=== PATIENT | male | born 1950 | race Caucasian/White ===

== ENCOUNTER 2018-12-06 21:45 | Emergency (ER) | payer OTHER ==
[2018-12-06 22:17] LABS: #Eosinphils 0.2 thou/uL (0.0-0.7); #Lymphocytes 1.6 thou/uL (1.20-3.40); #Monocytes 0.3 thou/uL (0.11-0.59); #Neutrophils 3.3 thou/uL (1.40-6.50); %Basophils 0.7 % (0.0-1.0); %Eosinophils 3.5 % (0.0-10.0); %Lymphocytes 29.6 % (21.0-51.0); %Monocytes 4.8 % (0.0-10.0); %Neutrophils 61.4 % (42.0-75.0); Hemoglobin 16.3 g/dL (14.0-18.0); Mean Corpuscular HGB CONC 34.3 g/dL (32.0-36.0); Mean Corpuscular Hemoglobin 32.6 pg (27.0-31.0); Mean Corpuscular Volume 94.9 fL (78.0-98.0); Platelet Count 214 thou/uL (130-400); RBC Distribution Width 12.2 % (11.5-14.5); Red Blood Cell (RBC) Count 4.99 mill/uL (4.70-6.10); White Blood Cell (WBC) Count 5.4 thou/uL (4.8-10.8)
[2018-12-06 22:23] LABS: INR-International Normal Ratio 0.9; Prothrombin Time 12.6 SEC (12.0-14.7)
[2018-12-06 22:24] LABS: PTT 31.9 SEC (22.9-36.1)
[2018-12-06 22:38] LABS: ALT (SGPT) 7 U/L (8-55); AST (SGOT) 9 U/L (5-34); Alkaline Phosphatase 88 U/L (40-150); Anion Gap 12 mmol/L (10-20); BUN (Urea Nitrogen) 13 mg/dL (8.4-25.7); Bilirubin, Total 0.2 mg/dL (0.2-1.2); Calc. Creatinine Clearance 0 mL/min (70-130); Calcium 9.7 mg/dL (7.8-10.44); Carbon Dioxide 29 mmol/L (23-31); Chloride 102 mmol/L (98-107); Estimated GFR-MDRD 77; Globulin 2.9 g/dL (2.4-3.5); Glucose 258 mg/dL (80-115); Potassium 3.8 mmol/L (3.5-5.1); Protein, Total 6.9 g/dL (5.8-8.1); Sodium 139 mmol/L (136-145)
[2018-12-06] MEDS ORDERED: Ondansetron ODT 8 MG TAB ONE (23:01)
[2018-12-06] MEDS ORDERED: Morphine 4 MG/ML VIAL ONE (23:23)
[2018-12-06] MEDS ORDERED: Ondansetron PF 4 MG/2 ML Vial ONE (23:28)
[2018-12-07] MEDS ORDERED: Morphine 4 MG/ML VIAL ONE (00:06)
[2018-12-07 01:26] LABS: #Eosinphils 0.1 thou/uL (0.0-0.7); #Lymphocytes 1.1 thou/uL (1.20-3.40); #Monocytes 0.8 thou/uL (0.11-0.59); #Neutrophils 16.3 thou/uL (1.40-6.50); %Basophils 0.1 % (0.0-1.0); %Eosinophils 0.6 % (0.0-10.0); %Lymphocytes 5.9 % (21.0-51.0); %Monocytes 4.1 % (0.0-10.0); %Neutrophils 89.3 % (42.0-75.0); Hemoglobin 16.3 g/dL (14.0-18.0); Mean Corpuscular HGB CONC 32.3 g/dL (32.0-36.0); Mean Corpuscular Hemoglobin 31.2 pg (27.0-31.0); Mean Corpuscular Volume 96.7 fL (78.0-98.0); Mean Platelet Volume 6.9 fL (7.4-10.4); PTT 30.1 SEC (22.9-36.1); Platelet Count 240 thou/uL (130-400); Prothrombin Time 13.4 SEC (12.0-14.7); RBC Distribution Width 12.4 % (11.5-14.5); Red Blood Cell (RBC) Count 5.22 mill/uL (4.70-6.10); White Blood Cell (WBC) Count 18.3 thou/uL (4.8-10.8)
[2018-12-07 01:40] LABS: ALT (SGPT) 12 U/L (8-55); AST (SGOT) 10 U/L (5-34); Alkaline Phosphatase 77 U/L (40-150); Anion Gap 13 mmol/L (10-20); BUN (Urea Nitrogen) 15 mg/dL (8.4-25.7); Bilirubin, Total 0.4 mg/dL (0.2-1.2); Calc. Creatinine Clearance 0 mL/min (70-130); Calcium 9.6 mg/dL (7.8-10.44); Carbon Dioxide 28 mmol/L (23-31); Chloride 103 mmol/L (98-107); Estimated GFR-MDRD 81; Globulin 2.9 g/dL (2.4-3.5); Glucose 139 mg/dL (80-115); Protein, Total 6.9 g/dL (5.8-8.1); Sodium 140 mmol/L (136-145)
== END 2018-12-07 02:02 | disposition home or self-care (01) ==
LOC: ERS 21:45
DX: T63.061A Toxic effect of venom of other North and South American snake, accidental (unintentional), initial encounter (principal); E11.9 Type 2 diabetes mellitus without complications; F17.210 Nicotine dependence, cigarettes, uncomplicated
CPT/HCPCS: 36415; 80053; 85025; 85610; 85730; 96374; 96375; 96376; J2270; J2405

== ENCOUNTER 2022-08-19 14:25 | Inpatient (IN) | payer MEDICARE, OTHER ==
[2022-08-19] MEDS ORDERED: Iopamidol-370 76% 500 ML 1 ML ONE (15:03)
[2022-08-19 15:34] LABS: Hemoglobin 15.3 g/dL (14.0-18.0); Mean Corpuscular HGB CONC 34.4 g/dL (32.0-36.0); Mean Corpuscular Hemoglobin 31.8 pg (27.0-31.0); Mean Corpuscular Volume 92.6 fl (78.0-98.0); Platelet Count 122 10x3/uL (130-400); RBC Distribution Width 12.3 % (11.5-14.5); Red Blood Cell (RBC) Count 4.82 mill/uL (4.70-6.10); White Blood Cell (WBC) Count 7.4 10x3/uL (4.8-10.8)
[2022-08-19 15:53] LABS: Band 42 % (5-11); Lymphocytes 7 % (21-51); MDiff Complete? YES; Metamyelocyte 15 % (0-0); Monocytes 3 % (0-10); Neutrophil 33 % (42-75); Platelet Morphology Comment Appears Decreased; RBC Morphology Normal; Reflex for Review?? YES; Vacuoles SLIGHT
[2022-08-19 15:54] LABS: ALT (SGPT) 9 U/L (8-55); AST (SGOT) 50 U/L (5-34); Albumin 3.4 g/dL (3.4-4.8); Alkaline Phosphatase 38 U/L (40-110); Anion Gap 14 mmol/L (10-20); BUN (Urea Nitrogen) 29 mg/dL (8.4-25.7); Bilirubin, Total 0.8 mg/dL (0.2-1.2); Calc. Creatinine Clearance 0 mL/min (70-130); Calcium 8.4 mg/dL (7.8-10.44); Carbon Dioxide 23 mmol/L (23-31); Chloride 94 mmol/L (98-107); Estimated GFR 40; Globulin 3.2 g/dL (2.4-3.5); Glucose 312 mg/dL (83-110); Lipase 8 U/L (8-78); Magnesium 1.4 mg/dL (1.6-2.6); Potassium 3.3 mmol/L (3.5-5.1); Protein, Total 6.6 g/dL (5.8-8.1); Sodium 128 mmol/L (136-145)
[2022-08-19] MEDS ORDERED: Cefepime 2 GM VIAL ONE (15:54)
[2022-08-19 16:11] LABS: Bacteria/HPF 4+ HPF (None Seen); Bilirubin Negative (Negative); Blood, Urine 3+ (Negative); Clarity Cloudy (Clear); Glucose, Urine (Dipstick) 500 mg/dL (Negative); Ketone, Urine Trace mg/dL (Negative); Leukocyte 500 Leu/uL (Negative); Nitrite Negative (Negative); Protein, Urine (Dipstick) 300 mg/dL (Neg-Trace); Specific Gravity, Urine 1.022 (1.002-1.036); Urobilinogen Normal mg/dL (Less than 2); WBC/HPF Greater than 50 HPF (0-3); pH, Urine 5.5 (5.0-9.0)
[2022-08-19 16:16] LABS: CKMB 3.8 ng/mL (0-6.6)
[2022-08-19] MEDS ORDERED: Vancomycin 1 GM/200 ML (FROZEN) BAG ONE (16:24)
[2022-08-19] MEDS ORDERED: Magnesium 2 GM/50 ML BAG (IN WATER) ONE (16:24)
[2022-08-19] MEDS ORDERED: Potassium Chloride 20 MEQ TAB ONE (16:25)
[2022-08-19] MEDS ORDERED: Aspirin Chewable 81 MG TAB ONE (16:46)
[2022-08-19 17:06] LABS: SARS-CoV-2 NAA Rapid Test DETECTED (NotDetected)
[2022-08-19] MEDS ORDERED: HumaLOG 300 UNITS/3 ML VIAL SC PRN (18:01)
[2022-08-19] MEDS ORDERED: Ondansetron PF 4 MG/2 ML Vial IVP PRN (18:01)
[2022-08-19] MEDS ORDERED: Dextrose 5% in Water 1,000 ML IV PRN (18:01)
[2022-08-19] MEDS ORDERED: Dextrose 50% Abboject 50 ML SYRINGE SLOW IVP PRN (18:01)
[2022-08-19] MEDS ORDERED: Electrolyte Replacement Protocol 1 EACH FS PRN (18:15)
[2022-08-19] MEDS ORDERED: Albuterol 200 PUFF (6.7GM INHALER) INH PRN (18:23)
[2022-08-19 18:50] LABS: Troponin I 0.102 ng/mL (< 0.028)
[2022-08-19] MEDS ORDERED: REMDESIVIR IVPB PRN (19:30)
[2022-08-19] MEDS ORDERED: REMDESIVIR 200 MG in Sodium Chloride 0.9% 250 ML 210 ML IV SCH (20:00)
[2022-08-19] MEDS ORDERED: Nicotine 21 MG PATCH TD PRN (20:00)
[2022-08-19] MEDS: Sodium Chloride 0.9% 1,000 ML IV SCH (21:14)
[2022-08-19] MEDS: Dexamethasone 4 mg/ml Vial SLOW IVP SCH (21:15)
[2022-08-19] MEDS: Acetaminophen 325 MG TAB PO PRN (21:16)
[2022-08-19] MEDS: Benzonatate 100 MG CAP PO SCH (21:16)
[2022-08-19 22:09] VITALS: BMI 23.7
[2022-08-19] MEDS ORDERED: Vancomycin 1 GM in Premix Bag 1 BAG IVPB SCH (22:45)
[2022-08-19] MEDS ORDERED: Magnesium 2 GM/50 ML(in water) 2 GM in Premix Bag 1 BAG IVPB SCH (23:00)
[2022-08-19 23:59] LABS: Troponin I 0.079 ng/mL (< 0.028)
[2022-08-20 00:33] LABS: Legionella Urinary Ag Negative (Negative); Strep pneumo Urine Ag POSITIVE (NEGATIVE)
[2022-08-20] MEDS: HumaLOG 300 UNITS/3 ML VIAL SC PRN ×2 (06:46→13:32)
[2022-08-20 08:07] LABS: Hemoglobin 14.3 g/dL (14.0-18.0); Mean Corpuscular HGB CONC 33.3 g/dL (32.0-36.0); Mean Corpuscular Hemoglobin 31.8 pg (27.0-31.0); Mean Corpuscular Volume 95.3 fl (78.0-98.0); Mean Platelet Volume 8.4 fL (7.4-10.4); Platelet Count 120 10x3/uL (130-400); RBC Distribution Width 12.3 % (11.5-14.5); Red Blood Cell (RBC) Count 4.51 mill/uL (4.70-6.10); White Blood Cell (WBC) Count 8.9 10x3/uL (4.8-10.8)
[2022-08-20 08:24] LABS: Anion Gap 15 mmol/L (10-20); BUN (Urea Nitrogen) 29 mg/dL (8.4-25.7); Calc. Creatinine Clearance 74 mL/min (70-130); Calcium 7.7 mg/dL (7.8-10.44); Carbon Dioxide 17 mmol/L (23-31); Cardiac Risk 4.5 (Less than 4.5); Chloride 101 mmol/L (98-107); Cholesterol 68 mg/dl (< 200 Desired); Estimated GFR 66; Glucose 253 mg/dL (83-110); HDL Cholesterol 15 mg/dL (>60 Neg Risk); LDL Cholesterol, Calculated 27 mg/dL; Magnesium 2.1 mg/dL (1.6-2.6); Potassium 3.9 mmol/L (3.5-5.1); Sodium 129 mmol/L (136-145); Triglycerides 130 mg/dL (Less than 150)
[2022-08-20] MEDS ORDERED: Enoxaparin Sodium 30 MG/0.3 ML SYRINGE SC SCH (09:00)
[2022-08-20] MEDS ORDERED: FLU VACC QS2022-23(65YR UP)/PF 240 MCG/0.7 ML SYRINGE IM ONE (09:00)
[2022-08-20] MEDS: Sodium Chloride 0.9% 1,000 ML IV SCH ×3 (09:30→18:22)
[2022-08-20] MEDS: Benzonatate 100 MG CAP PO SCH ×3 (09:33→21:00)
[2022-08-20] MEDS: Aspirin 81 mg Enteric Coated Tablet PO SCH (09:33)
[2022-08-20] MEDS: Acetaminophen 325 MG TAB PO PRN (09:33)
[2022-08-20 09:59] LABS: Band 80 % (5-11); Lymphocytes 2 % (21-51); MDiff Complete? YES; Metamyelocyte 2 % (0-0); Monocytes 1 % (0-10); Neutrophil 15 % (42-75); Platelet Morphology Comment Appears Decreased; RBC Morphology Normal
[2022-08-20] MEDS: Cefepime 2 GM in Sodium Chloride 0.9% 100 ML IVPB SCH ×2 (13:30→23:07)
[2022-08-20] MEDS: glipiZIDE 10 MG TAB PO SCH (18:10)
[2022-08-20] MEDS: VANCOMYCIN 1.75 GM/500 ML BAG 1.75 GM in Premix Bag 1 BAG IVPB SCH (19:06)
[2022-08-20] MEDS: Dexamethasone 4 mg/ml Vial SLOW IVP SCH (20:59)
[2022-08-20] MEDS: REMDESIVIR 100 MG in Sodium Chloride 0.9% 250 ML 230 ML IV SCH (21:00)
[2022-08-21] MEDS: Acetaminophen 325 MG TAB PO PRN (05:14)
[2022-08-21] MEDS: Sodium Chloride 0.9% 1,000 ML IV SCH ×2 (05:14→17:59)
[2022-08-21 06:02] LABS: Hemoglobin 14.1 g/dL (14.0-18.0); Mean Corpuscular HGB CONC 32.6 g/dL (32.0-36.0); Mean Corpuscular Hemoglobin 31.4 pg (27.0-31.0); Mean Corpuscular Volume 96.5 fl (78.0-98.0); Mean Platelet Volume 9.6 fL (7.4-10.4); Platelet Count 129 10x3/uL (130-400); RBC Distribution Width 12.6 % (11.5-14.5); Red Blood Cell (RBC) Count 4.49 mill/uL (4.70-6.10); White Blood Cell (WBC) Count 9.9 10x3/uL (4.8-10.8)
[2022-08-21 06:27] LABS: MDiff Complete? YES
[2022-08-21 06:28] LABS: Band 32 % (5-11); Lymphocytes 6 % (21-51); Monocytes 5 % (0-10); Neutrophil 57 % (42-75)
[2022-08-21] MEDS: buPROPion HCl 100 MG TAB PO SCH (08:33)
[2022-08-21] MEDS: Pioglitazone HCl 15 MG TAB PO SCH (08:33)
[2022-08-21] MEDS: Enoxaparin Sodium 40 MG/0.4 ML SYRINGE SC SCH (08:33)
[2022-08-21] MEDS: Benzonatate 100 MG CAP PO SCH ×3 (08:34→21:28)
[2022-08-21] MEDS: Aspirin 81 mg Enteric Coated Tablet PO SCH (08:34)
[2022-08-21] MEDS: glipiZIDE 10 MG TAB PO SCH ×2 (08:34→15:28)
[2022-08-21 09:57] LABS: Albumin 2.7 g/dL (3.4-4.8)
[2022-08-21 09:58] LABS: Chloride 99 mmol/L (98-107); Potassium 3.8 mmol/L (3.5-5.1); Sodium 128 mmol/L (136-145)
[2022-08-21 09:59] LABS: Glucose 246 mg/dL (83-110); Protein, Total 5.7 g/dL (5.8-8.1)
[2022-08-21 10:01] LABS: Anion Gap 12 mmol/L (10-20); Bilirubin, Total 0.7 mg/dL (0.2-1.2); Carbon Dioxide 21 mmol/L (23-31)
[2022-08-21 10:02] LABS: Alkaline Phosphatase 46 U/L (40-110)
[2022-08-21 10:03] LABS: BUN (Urea Nitrogen) 35 mg/dL (8.4-25.7); Calc. Creatinine Clearance 85 mL/min (70-130); Estimated GFR 79
[2022-08-21 10:04] LABS: AST (SGOT) 35 U/L (5-34)
[2022-08-21 10:05] LABS: ALT (SGPT) 15 U/L (8-55); Magnesium 2.3 mg/dL (1.6-2.6)
[2022-08-21] MEDS: Cefepime 2 GM in Sodium Chloride 0.9% 100 ML IVPB SCH (11:29)
[2022-08-21] MEDS: HumaLOG 300 UNITS/3 ML VIAL SC PRN ×2 (11:31→17:59)
[2022-08-21 18:13] LABS: Vancomycin, Trough 9.7 ug/mL
[2022-08-21] MEDS: Dexamethasone 4 mg/ml Vial SLOW IVP SCH (21:28)
[2022-08-21] MEDS: VANCOMYCIN 1.75 GM/500 ML BAG 1.75 GM in Premix Bag 1 BAG IVPB SCH (22:40)
[2022-08-21] MEDS: Insulin Glargine 30 UNITS/0.3 ML VIAL SC SCH (22:41)
[2022-08-21] MEDS: REMDESIVIR 100 MG in Sodium Chloride 0.9% 250 ML 230 ML IV SCH (22:41)
[2022-08-22] MEDS: Cefepime 2 GM in Sodium Chloride 0.9% 100 ML IVPB SCH ×2 (01:56→12:30)
[2022-08-22 07:56] LABS: Anion Gap 13 mmol/L (10-20); BUN (Urea Nitrogen) 35 mg/dL (8.4-25.7); Calc. Creatinine Clearance 103 mL/min (70-130); Calcium 8.2 mg/dL (7.8-10.44); Carbon Dioxide 19 mmol/L (23-31); Chloride 103 mmol/L (98-107); Estimated GFR 92; Glucose 254 mg/dL (83-110); Potassium 3.4 mmol/L (3.5-5.1); Sodium 132 mmol/L (136-145)
[2022-08-22] MEDS ORDERED: Amlodipine 10 MG TAB PO SCH (08:00)
[2022-08-22] MEDS ORDERED: cloNIDine 0.2 MG TAB PO SCH (08:00)
[2022-08-22] MEDS: glipiZIDE 10 MG TAB PO SCH ×2 (08:53→16:40)
[2022-08-22] MEDS: Enoxaparin Sodium 40 MG/0.4 ML SYRINGE SC SCH (08:53)
[2022-08-22] MEDS: Sodium Chloride 0.9% 1,000 ML IV SCH (08:53)
[2022-08-22] MEDS: buPROPion HCl 100 MG TAB PO SCH (08:53)
[2022-08-22] MEDS: Pioglitazone HCl 15 MG TAB PO SCH (08:53)
[2022-08-22] MEDS: Benzonatate 100 MG CAP PO SCH ×3 (08:54→21:56)
[2022-08-22] MEDS: Aspirin 81 mg Enteric Coated Tablet PO SCH (08:54)
[2022-08-22 10:07] LABS: Band 18 % (5-11); Lymphocytes 3 % (21-51); MDiff Complete? YES; Mean Corpuscular HGB CONC 33.8 g/dL (32.0-36.0); Mean Corpuscular Volume 94.6 fl (78.0-98.0); Mean Platelet Volume 8.2 fL (7.4-10.4); Monocytes 3 % (0-10); Neutrophil 75 % (42-75); Platelet Count 176 10x3/uL (130-400); Platelet Morphology Comment Appears Adequate; RBC Distribution Width 12.5 % (11.5-14.5); RBC Morphology Normal; Reactive Lymphocytes 1 % (0-10); Red Blood Cell (RBC) Count 4.36 mill/uL (4.70-6.10); White Blood Cell (WBC) Count 14.9 10x3/uL (4.8-10.8)
[2022-08-22] MEDS ORDERED: Potassium Chloride 20 MEQ TAB PO SCH (10:15)
[2022-08-22] MEDS ORDERED: Vancomycin 1.5 GRAM/300 ML BAG 1.5 GM in Premix Bag 1 BAG IVPB SCH (11:00)
[2022-08-22] MEDS: HumaLOG 300 UNITS/3 ML VIAL SC PRN ×2 (12:30→16:40)
[2022-08-22] MEDS: Dexamethasone 4 mg/ml Vial SLOW IVP SCH (20:55)
[2022-08-22] MEDS: REMDESIVIR 100 MG in Sodium Chloride 0.9% 250 ML 230 ML IV SCH (20:55)
[2022-08-22] MEDS: Insulin Glargine 30 UNITS/0.3 ML VIAL SC SCH (22:56)
[2022-08-22] MEDS ORDERED: VANCOMYCIN 1.75 GM/500 ML BAG 1.75 GM in Premix Bag 1 BAG IVPB SCH (23:00)
[2022-08-23] MEDS: HumaLOG 300 UNITS/3 ML VIAL SC PRN ×3 (06:44→17:18)
[2022-08-23] MEDS ORDERED: Amlodipine 5 MG TAB PO SCH ×3 (09:00→21:00)
[2022-08-23] MEDS: buPROPion HCl 100 MG TAB PO SCH (09:17)
[2022-08-23] MEDS: Benzonatate 100 MG CAP PO SCH ×3 (09:18→20:32)
[2022-08-23] MEDS: Aspirin 81 mg Enteric Coated Tablet PO SCH (09:18)
[2022-08-23] MEDS: glipiZIDE 10 MG TAB PO SCH ×2 (09:18→16:32)
[2022-08-23] MEDS: Pioglitazone HCl 15 MG TAB PO SCH (09:18)
[2022-08-23] MEDS: Enoxaparin Sodium 40 MG/0.4 ML SYRINGE SC SCH (09:18)
[2022-08-23 14:01] LABS: ALT (SGPT) 18 U/L (8-55); AST (SGOT) 25 U/L (5-34); Albumin 2.6 g/dL (3.4-4.8); Alkaline Phosphatase 62 U/L (40-110); Bilirubin, Direct 0.3 mg/dL (0.1-0.3); Bilirubin, Total 0.7 mg/dL (0.2-1.2); Protein, Total 6.1 g/dL (5.8-8.1)
[2022-08-23] MEDS ORDERED: cloNIDine 0.1 MG TAB PO PRN (16:44)
[2022-08-23] MEDS ORDERED: cloNIDine 0.2 MG TAB PO SCH (16:45)
[2022-08-23] MEDS: Dexamethasone 4 mg/ml Vial SLOW IVP SCH (20:31)
[2022-08-23] MEDS: REMDESIVIR 100 MG in Sodium Chloride 0.9% 250 ML 230 ML IV SCH (20:31)
[2022-08-23] MEDS: metFORMIN 500 MG TAB PO SCH (20:32)
[2022-08-23] MEDS: Insulin Glargine 30 UNITS/0.3 ML VIAL SC SCH (20:32)
[2022-08-24] MEDS: HumaLOG 300 UNITS/3 ML VIAL SC PRN ×2 (05:15→12:48)
[2022-08-24] MEDS: Oxybutynin 5 MG TAB PO SCH ×2 (09:13→10:46)
[2022-08-24] MEDS: buPROPion HCl 100 MG TAB PO SCH ×2 (09:13→10:47)
[2022-08-24] MEDS: Amlodipine 5 MG TAB PO SCH ×2 (09:13→10:46)
[2022-08-24] MEDS: Benzonatate 100 MG CAP PO SCH ×2 (09:13→10:46)
[2022-08-24] MEDS: glipiZIDE 10 MG TAB PO SCH ×2 (09:13→10:47)
[2022-08-24] MEDS: Aspirin 81 mg Enteric Coated Tablet PO SCH ×2 (09:13→10:46)
[2022-08-24] MEDS: metFORMIN 500 MG TAB PO SCH ×2 (09:13→10:46)
[2022-08-24] MEDS: Enoxaparin Sodium 40 MG/0.4 ML SYRINGE SC SCH ×2 (09:13→10:47)
[2022-08-24] MEDS: Pioglitazone HCl 15 MG TAB PO SCH ×2 (09:14→10:47)
[2022-08-24 16:36] VITALS: BP 157/67; TEMP 97.5
== END 2022-08-24 16:50 | disposition home or self-care (01) | DRG 177 ==
LOC: ERS 14:25 → 2NO 17:10 → T4-A 08-21 21:57
PROVIDERS: ADMIT Family Medicine; ATTEND Family Medicine
PROC: 3E0333Z Introduction of Anti-inflammatory into Peripheral Vein, Percutaneous Approach (ICD-10-PCS; principal; 2022-08-19)
PROC: XW033E5 Introduction of Remdesivir Anti-infective into Peripheral Vein, Percutaneous Approach, New Technology Group 5 (ICD-10-PCS; 2022-08-19)
PROC: 8E0ZXY6 Isolation (ICD-10-PCS; 2022-08-19)
DX: U07.1 COVID-19 (principal); J12.82 Pneumonia due to coronavirus disease 2019; J15.4 Pneumonia due to other streptococci; J96.01 Acute respiratory failure with hypoxia; N12 Tubulo-interstitial nephritis, not specified as acute or chronic; N17.9 Acute kidney failure, unspecified; E87.1 Hypo-osmolality and hyponatremia; I24.8 Other forms of acute ischemic heart disease; I25.10 Atherosclerotic heart disease of native coronary artery without angina pectoris; E11.9 Type 2 diabetes mellitus without complications; F17.210 Nicotine dependence, cigarettes, uncomplicated; I10 Essential (primary) hypertension; D69.6 Thrombocytopenia, unspecified; E83.42 Hypomagnesemia; E87.6 Hypokalemia; H66.90 Otitis media, unspecified, unspecified ear; H91.90 Unspecified hearing loss, unspecified ear; Z95.5 Presence of coronary angioplasty implant and graft
CPT/HCPCS: 36415; 36416; 51701; 71045; 71260; 74177; 80048; 80053; 80061; 80076; 80202; 81003; 81015; 82553; 83605; 83690; 83735; 84443; 84484; 85025; 85060; 87040; 87081; 87086; 87149; 87186; 87449; 87804; 87899; 93005; 93306; 96365; 96367; J0248; J0692; J1100; J1650; J1815; J3370; J3370-JW; J3475; J3490; J7050; J7620; Q9967; U0002

== ENCOUNTER 2025-08-03 20:49 | Inpatient (IN) | payer MEDICARE, OTHER ==
[2025-08-03 21:49] LABS: #Basophils 0.03 10x3/uL (0.0-0.2); #Eosinophils 0.03 10x3/uL (0.0-0.7); #Monocytes 0.43 10x3/uL (0.11-0.59); #Neutrophils 12.74 10x3/uL (1.40-6.50); %Basophils 0.2 % (0.0-1.0); %Eosinophils 0.2 % (0.0-10.0); %Lymphocytes 6.9 % (21.0-51.0); %Monocytes 3.0 % (0.0-10.0); %Neutrophils 89.3 % (42.0-75.0); Hematocrit 41.0 % (42.0-52.0); Hemoglobin 14.3 g/dL (14.0-18.0); Mean Corpuscular Hemoglobin 30.6 pg (27.0-31.0); Mean Corpuscular Volume 87.8 fL (78.0-98.0); Platelet Count 190 10x3/uL (130-400); Red Blood Cell (RBC) Count 4.67 mill/uL (4.70-6.10); White Blood Cell (WBC) Count 14.26 10x3/uL (4.8-10.8)
[2025-08-03 22:14] LABS: ALT (SGPT) 10 U/L (Less than 45); AST (SGOT) 17 U/L (11-34); Albumin 3.5 g/dL (3.1-4.5); Alkaline Phosphatase 75 U/L (40-110); Anion Gap 16 mmol/L (10-20); BUN (Urea Nitrogen) 29 mg/dL (8.4-25.7); Bilirubin, Total 0.4 mg/dL (0.3-1.2); Calc. Creatinine Clearance 0 mL/min (70-130); Calcium 9.3 mg/dL (7.8-10.44); Carbon Dioxide 25 mmol/L (23-31); Chloride 100 mmol/L (98-107); Globulin 3.0 g/dL (2.4-3.5); Glucose 300 mg/dL (83-110); Potassium 4.0 mmol/L (3.5-5.1); Sodium 137 mmol/L (136-145)
[2025-08-03] MEDS ORDERED: Acetaminophen 325 MG TAB PO PRN (23:30)
[2025-08-03] MEDS ORDERED: Glucagon 1 MG/ML KIT IM PRN (23:30)
[2025-08-03] MEDS ORDERED: Dextrose 50% Abboject 50 ML SYRINGE SLOW IVP PRN (23:30)
[2025-08-04] MEDS: Methocarbamol 500 MG TAB PO PRN (00:54)
[2025-08-04] MEDS: Ondansetron PF 4 MG/2 ML Vial IVP PRN (00:55)
[2025-08-04 03:05] VITALS: BMI 22.3
[2025-08-04 05:08] LABS: #Basophils 0.03 10x3/uL (0.0-0.2); #Eosinophils 0.07 10x3/uL (0.0-0.7); #Monocytes 0.55 10x3/uL (0.11-0.59); #Neutrophils 10.85 10x3/uL (1.40-6.50); %Basophils 0.2 % (0.0-1.0); %Eosinophils 0.6 % (0.0-10.0); %Lymphocytes 8.5 % (21.0-51.0); %Monocytes 4.4 % (0.0-10.0); %Neutrophils 85.9 % (42.0-75.0); Hematocrit 35.8 % (42.0-52.0); Hemoglobin 12.1 g/dL (14.0-18.0); Mean Corpuscular Hemoglobin 30.1 pg (27.0-31.0); Mean Corpuscular Volume 89.1 fL (78.0-98.0); Platelet Count 162 10x3/uL (130-400); Red Blood Cell (RBC) Count 4.02 mill/uL (4.70-6.10); White Blood Cell (WBC) Count 12.62 10x3/uL (4.8-10.8)
[2025-08-04 05:40] LABS: Anion Gap 12 mmol/L (10-20); BUN (Urea Nitrogen) 28 mg/dL (8.4-25.7); Calc. Creatinine Clearance 68 mL/min (70-130); Calcium 8.5 mg/dL (7.8-10.44); Carbon Dioxide 27 mmol/L (23-31); Chloride 102 mmol/L (98-107); Glucose 246 mg/dL (83-110); Potassium 3.9 mmol/L (3.5-5.1); Sodium 137 mmol/L (136-145)
[2025-08-04] MEDS: Senokot S 8.6-50 MG TAB PO SCH (07:47)
[2025-08-04] MEDS ORDERED: Senokot S 8.6-50 MG TAB PO SCH (09:00)
[2025-08-04] MEDS ORDERED: fentaNYL PF 100 MCG/2 ML SYRINGE ONE ×3 (13:30→16:47)
[2025-08-04] MEDS ORDERED: Lidocaine 1% PF 5 ML VIAL ONE (13:31)
[2025-08-04] MEDS ORDERED: Lidocaine 2% 6 ML (Jelly) SYR ONE (13:41)
[2025-08-04] MEDS ORDERED: Ondansetron PF 4 MG/2 ML Vial ONE (14:25)
[2025-08-04] MEDS ORDERED: PROPOFOL 200 MG/20 ML VIAL ONE (14:25)
[2025-08-04] MEDS ORDERED: Rocuronium Bromide 10 MG/ML (10ML VIAL) ONE (14:25)
[2025-08-04] MEDS ORDERED: SUGAMMADEX SODIUM 200 MG/2 ML VIAL ONE (16:05)
[2025-08-04] MEDS: Acetaminophen 500 MG TAB PO SCH (18:10)
[2025-08-04] MEDS: Famotidine/PF 20 mg/2ml Vial SLOW IVP SCH (18:10)
[2025-08-04] MEDS: Scopolamine 1 mg/72 hour Patch TOP SCH (18:10)
[2025-08-04] MEDS: Aspirin 81 mg Enteric Coated Tablet PO SCH (18:10)
[2025-08-04] MEDS: hydrALAZINE 20 MG/ML VIAL SLOW IVP PRN (21:45)
[2025-08-05 04:54] LABS: #Basophils Less than 0.03 10x3/uL (0.0-0.2); #Eosinophils Less than 0.03 10x3/uL (0.0-0.7); #Monocytes 0.48 10x3/uL (0.11-0.59); #Neutrophils 9.33 10x3/uL (1.40-6.50); %Basophils 0.1 % (0.0-1.0); %Eosinophils 0.1 % (0.0-10.0); %Lymphocytes 5.6 % (21.0-51.0); %Monocytes 4.6 % (0.0-10.0); %Neutrophils 89.3 % (42.0-75.0); Hematocrit 32.2 % (42.0-52.0); Hemoglobin 10.8 g/dL (14.0-18.0); Mean Corpuscular Hemoglobin 30.3 pg (27.0-31.0); Mean Corpuscular Volume 90.4 fL (78.0-98.0); Platelet Count 144 10x3/uL (130-400); Red Blood Cell (RBC) Count 3.56 mill/uL (4.70-6.10); White Blood Cell (WBC) Count 10.44 10x3/uL (4.8-10.8)
[2025-08-05 05:17] LABS: Anion Gap 12 mmol/L (10-20); BUN (Urea Nitrogen) 28 mg/dL (8.4-25.7); Calc. Creatinine Clearance 62 mL/min (70-130); Calcium 8.1 mg/dL (7.8-10.44); Carbon Dioxide 23 mmol/L (23-31); Chloride 104 mmol/L (98-107); Glucose 292 mg/dL (83-110); Potassium 4.3 mmol/L (3.5-5.1); Sodium 135 mmol/L (136-145)
[2025-08-05] MEDS: Aspirin 81 mg Enteric Coated Tablet PO SCH (08:18)
[2025-08-05] MEDS: Valsartan 80 MG TAB PO SCH (08:18)
[2025-08-05] MEDS: Enoxaparin 40 MG (0.4 mL) SYRINGE SC SCH (08:19)
[2025-08-05] MEDS ORDERED: Ibuprofen 600 MG TAB PO SCH (11:00)
[2025-08-05] MEDS ORDERED: Acetaminophen 325 MG TAB PO SCH (11:00)
[2025-08-05] MEDS: Acetaminophen 500 MG TAB PO SCH (12:44)
[2025-08-05] MEDS: cefTRIAXone\\ROCEPHIN 1 GM in Sodium Chloride 0.9% 100 ML IVPB SCH (14:55)
[2025-08-05] MEDS: Ibuprofen 200 MG TAB PO SCH (14:55)
[2025-08-05] MEDS: Gabapentin 300 MG CAP PO SCH (16:01)
[2025-08-05] MEDS: Azithromycin 500 MG in Sodium Chloride 0.9% 250 ML 250 ML IVPB SCH (16:04)
[2025-08-06 06:26] LABS: #Basophils 0.03 10x3/uL (0.0-0.2); #Eosinophils 0.43 10x3/uL (0.0-0.7); #Monocytes 0.48 10x3/uL (0.11-0.59); #Neutrophils 4.47 10x3/uL (1.40-6.50); %Basophils 0.4 % (0.0-1.0); %Eosinophils 6.2 % (0.0-10.0); %Lymphocytes 22.3 % (21.0-51.0); %Monocytes 6.9 % (0.0-10.0); %Neutrophils 63.9 % (42.0-75.0); Hematocrit 29.6 % (42.0-52.0); Hemoglobin 9.9 g/dL (14.0-18.0); Mean Corpuscular Hemoglobin 30.5 pg (27.0-31.0); Mean Corpuscular Volume 91.1 fL (78.0-98.0); Platelet Count 140 10x3/uL (130-400); Red Blood Cell (RBC) Count 3.25 mill/uL (4.70-6.10); White Blood Cell (WBC) Count 6.99 10x3/uL (4.8-10.8)
[2025-08-06 06:51] LABS: Anion Gap 13 mmol/L (10-20); BUN (Urea Nitrogen) 36 mg/dL (8.4-25.7); Calc. Creatinine Clearance 56 mL/min (70-130); Calcium 8.1 mg/dL (7.8-10.44); Carbon Dioxide 25 mmol/L (23-31); Chloride 105 mmol/L (98-107); Glucose 181 mg/dL (83-110); Potassium 3.8 mmol/L (3.5-5.1); Sodium 139 mmol/L (136-145)
[2025-08-06] MEDS: Insulin Glargine 30 UNITS/0.3 ML VIAL SC SCH (09:36)
[2025-08-07 05:15] LABS: Anion Gap 9 mmol/L (10-20); BUN (Urea Nitrogen) 30 mg/dL (8.4-25.7); Calc. Creatinine Clearance 70 mL/min (70-130); Calcium 8.2 mg/dL (7.8-10.44); Carbon Dioxide 27 mmol/L (23-31); Chloride 107 mmol/L (98-107); Glucose 216 mg/dL (83-110); Potassium 3.8 mmol/L (3.5-5.1); Sodium 139 mmol/L (136-145)
[2025-08-07] MEDS ORDERED: Bisacodyl 10 MG SUPP PR PRN (09:36)
[2025-08-07] MEDS: glipiZIDE 10 MG TAB PO SCH (17:49)
[2025-08-07] MEDS: Insulin Glargine 30 UNITS/0.3 ML VIAL SC SCH (21:53)
[2025-08-08 05:12] LABS: #Basophils 0.04 10x3/uL (0.0-0.2); #Eosinophils 0.50 10x3/uL (0.0-0.7); #Monocytes 0.51 10x3/uL (0.11-0.59); #Neutrophils 3.82 10x3/uL (1.40-6.50); %Basophils 0.6 % (0.0-1.0); %Eosinophils 7.6 % (0.0-10.0); %Lymphocytes 25.5 % (21.0-51.0); %Monocytes 7.8 % (0.0-10.0); %Neutrophils 58.0 % (42.0-75.0); Hematocrit 31.3 % (42.0-52.0); Hemoglobin 10.5 g/dL (14.0-18.0); Mean Corpuscular Hemoglobin 30.5 pg (27.0-31.0); Mean Corpuscular Volume 91.0 fL (78.0-98.0); Platelet Count 206 10x3/uL (130-400); Red Blood Cell (RBC) Count 3.44 mill/uL (4.70-6.10); White Blood Cell (WBC) Count 6.58 10x3/uL (4.8-10.8)
[2025-08-08 05:21] LABS: ALT (SGPT) 7 U/L (Less than 45); AST (SGOT) 19 U/L (11-34); Albumin 2.4 g/dL (3.1-4.5); Alkaline Phosphatase 54 U/L (40-110); Anion Gap 9 mmol/L (10-20); BUN (Urea Nitrogen) 23 mg/dL (8.4-25.7); Bilirubin, Total 0.3 mg/dL (0.3-1.2); Calc. Creatinine Clearance 83 mL/min (70-130); Calcium 8.4 mg/dL (7.8-10.44); Carbon Dioxide 26 mmol/L (23-31); Chloride 108 mmol/L (98-107); Globulin 3.0 g/dL (2.4-3.5); Glucose 61 mg/dL (83-110); Magnesium 1.7 mg/dL (1.6-2.6); Potassium 3.5 mmol/L (3.5-5.1); Sodium 139 mmol/L (136-145)
[2025-08-08] MEDS: Magnesium Oxide 400 MG TAB PO SCH (07:40)
[2025-08-08] MEDS: NIFEdipine XL 30 MG ER.TAB PO SCH (21:03)
[2025-08-08] MEDS: Cefdinir 300 MG CAP PO SCH (21:03)
[2025-08-09 06:08] LABS: #Basophils Less than 0.03 10x3/uL (0.0-0.2); #Eosinophils 0.50 10x3/uL (0.0-0.7); #Monocytes 0.48 10x3/uL (0.11-0.59); #Neutrophils 4.97 10x3/uL (1.40-6.50); %Basophils 0.3 % (0.0-1.0); %Eosinophils 6.9 % (0.0-10.0); %Lymphocytes 17.0 % (21.0-51.0); %Monocytes 6.6 % (0.0-10.0); %Neutrophils 68.8 % (42.0-75.0); Hematocrit 35.1 % (42.0-52.0); Hemoglobin 11.8 g/dL (14.0-18.0); Mean Corpuscular Hemoglobin 30.2 pg (27.0-31.0); Mean Corpuscular Volume 89.8 fL (78.0-98.0); Platelet Count 223 10x3/uL (130-400); Red Blood Cell (RBC) Count 3.91 mill/uL (4.70-6.10); White Blood Cell (WBC) Count 7.23 10x3/uL (4.8-10.8)
[2025-08-09 06:26] LABS: ALT (SGPT) 10 U/L (Less than 45); AST (SGOT) 23 U/L (11-34); Albumin 2.6 g/dL (3.1-4.5); Alkaline Phosphatase 62 U/L (40-110); Anion Gap 12 mmol/L (10-20); BUN (Urea Nitrogen) 20 mg/dL (8.4-25.7); Bilirubin, Total 0.5 mg/dL (0.3-1.2); Calc. Creatinine Clearance 74 mL/min (70-130); Calcium 8.7 mg/dL (7.8-10.44); Carbon Dioxide 25 mmol/L (23-31); Chloride 106 mmol/L (98-107); Globulin 3.1 g/dL (2.4-3.5); Glucose 99 mg/dL (83-110); Potassium 3.9 mmol/L (3.5-5.1); Sodium 139 mmol/L (136-145)
[2025-08-09] MEDS: Milk Of Magnesia 30 ML UDCUP PO SCH (14:15)
[2025-08-09] MEDS: Bisacodyl 10 MG SUPP PR SCH (14:15)
[2025-08-09] MEDS: Lactulose 20 GM (30 mL) UDCUP PO SCH (14:15)
[2025-08-10 09:02] LABS: #Basophils Less than 0.03 10x3/uL (0.0-0.2); #Eosinophils 0.49 10x3/uL (0.0-0.7); #Monocytes 0.57 10x3/uL (0.11-0.59); #Neutrophils 5.59 10x3/uL (1.40-6.50); %Basophils 0.2 % (0.0-1.0); %Eosinophils 6.0 % (0.0-10.0); %Lymphocytes 18.5 % (21.0-51.0); %Monocytes 6.9 % (0.0-10.0); %Neutrophils 67.9 % (42.0-75.0); Hematocrit 35.2 % (42.0-52.0); Hemoglobin 12.0 g/dL (14.0-18.0); Mean Corpuscular Hemoglobin 31.1 pg (27.0-31.0); Mean Corpuscular Volume 91.2 fL (78.0-98.0); Platelet Count 256 10x3/uL (130-400); Red Blood Cell (RBC) Count 3.86 mill/uL (4.70-6.10); White Blood Cell (WBC) Count 8.23 10x3/uL (4.8-10.8)
[2025-08-10 09:17] LABS: ALT (SGPT) 23 U/L (Less than 45); AST (SGOT) 36 U/L (11-34); Albumin 2.6 g/dL (3.1-4.5); Alkaline Phosphatase 66 U/L (40-110); Anion Gap 11 mmol/L (10-20); BUN (Urea Nitrogen) 22 mg/dL (8.4-25.7); Bilirubin, Total 0.4 mg/dL (0.3-1.2); Calc. Creatinine Clearance 68 mL/min (70-130); Calcium 8.8 mg/dL (7.8-10.44); Carbon Dioxide 27 mmol/L (23-31); Chloride 105 mmol/L (98-107); Globulin 3.2 g/dL (2.4-3.5); Glucose 86 mg/dL (83-110); Potassium 3.9 mmol/L (3.5-5.1); Sodium 139 mmol/L (136-145)
[2025-08-10 11:45] VITALS: BP 137/63; TEMP 98.2
== END 2025-08-10 14:40 | disposition home or self-care (01) | DRG 498 ==
LOC: ERS 20:49 → SURG A 23:30
PROVIDERS: ADMIT Surgery Trauma Surgery; ATTEND Surgery Trauma Surgery
PROC: 0SRS0JA Replacement of Left Hip Joint, Femoral Surface with Synthetic Substitute, Uncemented, Open Approach (ICD-10-PCS; principal; 2025-08-04)
PROC: 0QP704Z Removal of Internal Fixation Device from Left Upper Femur, Open Approach (ICD-10-PCS; 2025-08-04)
DX: S72.012A Unspecified intracapsular fracture of left femur, initial encounter for closed fracture (principal); J18.9 Pneumonia, unspecified organism; J96.01 Acute respiratory failure with hypoxia; N17.9 Acute kidney failure, unspecified; W18.30XA Fall on same level, unspecified, initial encounter; Z66 Do not resuscitate; F17.210 Nicotine dependence, cigarettes, uncomplicated; I10 Essential (primary) hypertension; I25.10 Atherosclerotic heart disease of native coronary artery without angina pectoris; Z95.5 Presence of coronary angioplasty implant and graft; E11.65 Type 2 diabetes mellitus with hyperglycemia; Z79.84 Long term (current) use of oral hypoglycemic drugs; Z79.899 Other long term (current) drug therapy
CPT/HCPCS: 36415; 36416; 71045; 72170; 72192; 80048; 80053; 83036; 83735; 84100; 84484; 85025; 93005; 93010; 96361; 96374; C1776; G0390; J0360; J0456; J0696; J1100; J1650; J1815; J2270; J2405; J2704; J3010; J7050; J7120